=== PATIENT | female | born 1995 | race Caucasian/White ===

== ENCOUNTER 2016-10-30 05:42 | Emergency (ER) | payer OTHER ==
[2016-10-30 05:52] VITALS: BP 121/81; PULSE 62; RESP 16; TEMP 98.1; O2SAT 99
[2016-10-30] MEDS ORDERED: PROPARACAINE 0.5% 15 ML OPHT DROP ONE (05:57)
[2016-10-30] MEDS ORDERED: FLUORESCEIN SODIUM 1 MG STRIP OP ONE ×2 (05:57→06:00)
[2016-10-30] MEDS ORDERED: PROPARACAINE 0.5% 15 ML OPHT DROP RTEYE ONE (06:00)
[2016-10-30] MEDS ORDERED: CIPROFLOXACIN 0.3% DROPS PREPACK OPHT.BTL TAKEHOME ONE (06:17)
--- NOTE | 2016-10-30 06:20 | EDPHY ---
H & P Stated Complaint: suspects contact stuck in eye Time Seen by Provider: 10/30/16 06:01 HPI/ROS: Chief complaint: Eye pain HPI: 21-year-old female woke this morning with the sensation of something in her eye. She rubbed it and fell as though her contact lens was stuck in her eye. She has had blurry vision from that eye consistent with when she is not wearing her lenses. Denies any recent trauma. Does not recall removing them applying the or rubbing her eye. States that they are extended wear lenses and she takes amount changes about once a month. Has not had any redness or irritation before this morning but this morning she noticed that she had some irritation in that eye. She looked for it is been tried multiple times to get out which she feels like is a foreign body in the lower portion) unable to get out. ROS: 10 point Review of Systems is negative except as noted in the HPI. Physical exam: General: Awake, alert, no acute distress Eye exam: Eye Exam EOM: Intact OU Visual Read: Intact OU Pupil: Equal, round and reactive to light and accomodation OU External: Lids, lashes and margins normal OU, eyelids everted on the right with no foreign body noted. Fundoscopy; right cornea is diffusely injected with limbic sparing. I do not appreciate a contact lens in the eye. The eyelid was the everted. Slit Lamp; Normal Conjuctiva, Iris normal, Cornea normal, Anterior chambers clear without cells or flare, no hyphema, normal angles Fluorosceine exam: There is fluorescein uptake in the 5 to 6 o'clock position consistent with corneal abrasion. No foreign body noted. - Personal History LMP (Females 10-55): 1-7 Days Ago Current Tetanus/Diphtheria Vaccine: Yes Current Tetanus Diphtheria and Acellular Pertussis (TDAP): Yes - Medical/Surgical History Hx Asthma: No Hx Chronic Respiratory Disease: No Hx Diabetes: No Hx Cardiac Disease: No Hx Renal Disease: No Hx Cirrhosis: No Hx Alcoholism: No Hx HIV/AIDS: No Hx Splenectomy or Spleen Trauma: No Other PMH: denies - Social History Smoking Status: Never smoked Constitutional: Initial Vital Signs Temperature (C) 36.7 C 10/30/16 05:50 Heart Rate 62 10/30/16 05:50 Respiratory Rate 16 10/30/16 05:50 Blood Pressure 121/81 H 10/30/16 05:50 O2 Sat (%) 99 10/30/16 05:50 O2 Delivery Mode Room Air Allergies/Adverse Reactions: Sulfa (Sulfonamide Antibiotics) Allergy (Verified 10/30/16 05:49) Home Medications: Medication Instructions Recorded Spironolactone 10/30/16 Medical Decision Making - Data Points Medications Given: Discontinued Medications Ciprofloxacin (Ciloxan 0.3% Opht Drops Prepack) 1 btl TAKEHOME EDNOW ONE Stop: 10/30/16 06:18 Last Admin: 10/30/16 06:33 Dose: 1 btl Fluorescein Sodium (Ycoef-Q-Shwjc) 1 mg OP EDNOW ONE Stop: 10/30/16 06:01 Last Admin: 10/30/16 06:12 Dose: 1 mg Proparacaine HCl (Alcaine 0.5%) 2 drops RTEYE ONCE ONE Stop: 10/30/16 06:01 Last Admin: 10/30/16 06:12 Dose: 2 drops Departure - Departure Disposition: Home, Routine, Self-Care Clinical Impression: Corneal abrasion Condition: Good Instructions: Ciprofloxacin (Into the eye), Corneal Abrasion (ED) Additional Instructions: Apply 1-2 drops to the affected eye every 2 hours for the next 2 days. Follow up with Dr. Smart, ophthalmology early next week if you're still having any symptoms. Return to the emergency depart for increasing pain. Referrals: Edmund Smart MD [Medical Doctor] - As per Instructions
== END 2016-10-30 06:30 | disposition home or self-care (01) ==
DX: H18.821 Corneal disorder due to contact lens, right eye (principal)